=== PATIENT | female | born 1975 | race Two or more races ===

== ENCOUNTER 2025-09-04 18:54 | Emergency (ER) | payer MEDICAID, SELFPAY ==
[2025-09-04 18:54] VITALS: BMI 28.2
[2025-09-04 19:16] VITALS: BP 127/74; PULSE 87; RESP 19; TEMP 37.1; O2SAT 97
--- NOTE | 2025-09-04 21:14 | PD.EDADULT ---
ED General RME/HPI General Chief complaint: Skin/Abscess/Foreign Body Stated complaint: ABSCESS TO R LOWER ABD X8 DAYS Time Seen by Provider: 09/04/25 21:00 Arrival date/time: 09/04/25 18:54 CC: Left lower pannus HPI abscess onset 8 days ago. Patient was put on antibiotics per PCP but it continues to grow. Patient denies fever chills shortness of breath or difficulty breathing no prior history of similar events. Localized pain is 6-8 on a 10 scale depending on where she is moving or laying still. No other complaints at this time. Related Data Previous Rx's ?Medication ?Instructions ?Recorded cyclobenzaprine 10 mg tablet 10 mg PO Q8H #20 tabs 12/24/17 ibuprofen 800 mg tablet 800 mg PO TID PRN pain #20 tabs 12/24/17 Allergies Allergy/AdvReac Type Severity Reaction Status Date / Time Penicillins Allergy Severe Anaphylaxis Verified 09/04/25 18:58 Review of Systems Review of Systems Narrative Review of Systems: GEN: No fever, no chills, no weight loss EYES: No discharge, no visual changes, no pain HEENT: No ear pain, no congestion, no sore throat PULM: No shortness of breath, no cough, no congestion CV: No chest pain, no dyspnea on exertion, no palpitations GI: No nausea, no vomiting, no diarrhea, no pain, no constipation : No frequency, no urgency, no dysuria MUSC/SKEL: No joint pain, no back pain SKIN: + Abdominal abscess, no rash PSYCH: No hallucinations, no depression HEME/LYMPH: No easy bleeding or bruising tendencies NEURO: No weakness, no headache Past Medical History Social History SMOKING STATUS: Never smoker ED Exam Narrative Physical exam: [General: In mild discomfort but not in any acute distress Head normocephalic HEENT: Within acceptable limits Neck is supple nontender Chest equal chest rise nontender to palpation Respiratory: Clear to auscultation no wheezes crackles or rubs CV: Rate rhythm is regular no murmurs rubs or clicks Abdomen small pannus left lower quadrant has a large indurated firm center with surrounding erythema. No open ulceration no oozing. The balance of the pannus is negative nontender. Back: No CVA tenderness no spinous process tenderness from cervical spine thoracic and lumbar spine Skin: See above otherwise skin is intact no petechiae rash induration ulceration or crepitus Extremities: Moving all extremity against resistance cap refill less than 2 seconds neurosensory intact Neuro: Awake alert oriented x3 Glascow coma 15 no focal deficits] Course Quality Measures none Vital Signs Vital signs: Vital Signs Temperature 98.8 F 09/04/25 19:16 Pulse Rate 87 09/04/25 19:16 Respiratory Rate 19 09/04/25 19:16 Blood Pressure 127/74 09/04/25 19:16 Pulse Oximetry (%) 97 09/04/25 19:16 Oxygen Delivery Method Room Air 09/04/25 19:16 PROCEDURES: Procedure Comment Incision and drainage anesthesia: 1% lidocaine epinephrine 3 mL injected in the local site. Then a 1 cm crosshatch incision made with a 1 #11 scalpel. Site was probed loculations were broken out approximately 10 to 15 mL of exudative material was expressed without complication quarter-inch packing was placed. Bulky dressing was applied. Patient tolerated the procedure well. Discharge Plan Plan Patient Disposition: HOME (Self Care) Patient condition on transfer: Stable Prescriptions/Referrals Prescriptions/Med Rec: No Action cyclobenzaprine 10 mg tablet 10 mg PO Q8H Qty: 20 0RF ibuprofen 800 mg tablet 800 mg PO TID PRN (Reason: pain) Qty: 20 0RF Referrals: Roc Alcazar MD [Physician, Family Practice] - In 1 week Problem List Clinical Impression: Abdominal abscess Patient/Caregiver Discharge Instructions Other Activity Instructions:: Keep the site clean and dry, return in 3 days for packing removal. If there is any increase in redness or tenderness with fever return to the emergency room for reevaluation. Take all your antibiotics prescribed by your doctor until they are completely gone. Education Materials: Abscess Drainage Print Language: Yakut Stand Alone Forms: [employer] Award Info., Work/School Release, Patient Portal Info Letter PA/ADRIANA Supervising Physician PA/COMPLAINT ADJUSTER Supervising Physician: Mitchell Walter ENP MDM Clinical Information Provided by: patient Medical Records reviewed [facility] Meds/Rx considered, not ordered None Labs/Rad/Tests considered, not ordered None Chronic Illness/Social Conditions which may negatively complicate care or outcome(s)-explain: None or not applicable EKG EKG not done Labs Labs: none Imaging Imaging interpretation: none Medication Administration(s) none None Diagnosis Differential Diagnosis ED Complaint MDM: Abscess cellulitis contact dermatitis
[2025-09-04] MEDS: LIDOCAINE 1% W/EPI 1:100K 20 ML VIAL INFL (21:46)
[2025-09-04 22:01] VITALS: BP 125/76; PULSE 89; RESP 20; TEMP 37; O2SAT 100
== END 2025-09-04 22:13 | disposition home or self-care (01) ==
LOC: SERX 22:01
PROVIDERS: Emergency Provider Emergency Medicine
DX: L02.211 Cutaneous abscess of abdominal wall (principal)
CPT/HCPCS: 10060; 99281; J3490